=== PATIENT | female | born 1950 | race Caucasian/White ===

== ENCOUNTER 2018-11-09 12:03 | Emergency (ER) | payer OTHER ==
--- OUTSIDE RECORDS SUMMARY | 2018-11-09 12:42 | XMS REPORT ---
:1950 [facility] [address] [place] [address] Care Team Providers Name Role Phone Unavailable Unavailable Unavailable Payers Payer Name Policy Type Policy Number Effective Date Expiration Date Problems This patient has no known problems. Allergies, Adverse Reactions, Alerts Allergy Allergy Status Severity Reaction(s) Onset Inactive Treating Comments Name Type Date Date Clinician morphine DA Active 2018-09 00:00:0 0 adhesive DA Active 2018-09 00:00:0 0 latex DA Active SV 2018-09 00:00:0 0 morphine DA Active SV 2018-08 00:00:0 0 adhesive DA Active SV 2018-08 00:00:0 0 latex DA Active SV 2018-08 00:00:0 0 morphine DA Active SV 2018-07 00:00:0 0 adhesive DA Active SV 2018-07 00:00:0 0 MORPHINE DA Active SV 2018-07 00:00:0 0 latex DA Active SV 2018-03 00:00:0 0 Medications This patient has no known medications.
[2018-11-09] MEDS ORDERED: MEPERIDINE HCL 25 MG/0.5 ML ONE (13:12)
--- NOTE | 2018-11-09 13:24 | RAD REPORT ---
EXAM DESCRIPTION: CT - Head Brain Wo Cont - 11/09/2018 1:17 pm CLINICAL HISTORY: Headache, history of blood clotting disorder in breast cancer COMPARISON: CT head August 2017 TECHNIQUE: Axial 5 mm thick images of the head were obtained without IV contrast. All CT scans are performed using dose optimization technique as appropriate and may include automated exposure control or mA/KV adjustment according to patient size. FINDINGS: No intracranial hemorrhage, mass, edema or shift of mid-line structures. No acute infarcti on changes seen. No significant atrophy or chronic ischemic change. Ventricles are normal. Arterial c alcifications are present. Intracranial findings are similar to the comparison. Mastoid air cells and visualized portions of the paranasal sinuses are clear. No acute bony findings. IMPRESSION: Negative non-contrast CT head examination for acute finding. No significant interval ch rambo.
[2018-11-09] MEDS ORDERED: MORPHINE 4 MG/ML SYR ONE (14:30)
[2018-11-09] MEDS ORDERED: ONDANSETRON 4 MG/2 ML VIAL ONE (14:31)
[2018-11-09] MEDS ORDERED: NA CHLORIDE 0.9% 1,000 ML ONE (14:31)
[2018-11-09 14:52] LABS: Absolute Lymphocytes (CBC) 0.6 K/uL (0.7-4.9); Absolute Monocytes 0.7 K/uL (0.1-1.3); Absolute Neutrophil 5.2 K/uL (1.8-8.0); Basophils % 0.1 % (0-1.3); Eosinophils % 0.6 % (0-4.4); Hematocrit 42.7 % (36.0-45.0); Lymphocytes % 9.2 % (15.3-44.8); MPV 8.4 fL (7.6-11.3); Monocytes % 10.5 % (3.3-12.3); RBC Red Blood Cell Count 5.56 M/uL (3.86-4.86)
[2018-11-09] MEDS ORDERED: FENTANYL CITR 100 MCG/2 ML ONE (14:57)
[2018-11-09 15:00] LABS: Potassium 3.9 mmol/L (3.5-5.1)
--- NOTE | 2018-11-09 15:35 | ER ---
Nurse's Notes [facility] Name: Chrissy Tavares Age: 68 yrs Sex: Female : 1950 Arrival Date: 11/09/2018 Time: 12:08 Bed 13 Private MD: ELIESER ROCKWELL Diagnosis: Influenza due to identified novel influenza A virus Presentation: 11/09 12:12 Presenting complaint: Patient states: I think I have the flu, it started yesterday, I ch have a terrible productive cough, body aches, headache, nasal congestion. I feel horrible. Transition of care: patient was not received from another setting of care. Onset of symptoms was November 08, 2018 at 15:00. Risk Assessment: Do you want to hurt yourself or someone else? Patient reports no desire to harm self or others. Initial Sepsis Screen: Does the patient meet any 2 criteria? No. Patient's initial sepsis screen is negative. Does the patient have a suspected source of infection? No. Patient's initial sepsis screen is negative. Care prior to arrival: None. 12:12 Method Of Arrival: Ambulatory 12:12 Acuity: LORENZA 3 ch Triage Assessment: 12:15 General: Appears in no apparent distress. uncomfortable, Behavior is calm, cooperative, ch appropriate for age. Pain: Complains of pain in head. 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 - Social history:: Smoking status: Patient/guardian denies using tobacco, Patient/guardian denies using alcohol, street drugs. - Ebola Screening: : Patient negative for fever greater than or equal to 101.5 degrees Fahrenheit, and additional compatible Ebola Virus Disease symptoms Patient denies exposure to infectious person Patient denies travel to an Ebola-affected area in the 21 days before illness onset No symptoms or risks identified at this time. Screenin:22 Abuse screen: Denies threats or abuse. Nutritional screening: No deficits noted. rb1 Tuberculosis screening: No symptoms or risk factors identified. Fall Risk None identified. Assessment: 12:22 General: Appears uncomfortable, Behavior is calm, cooperative, Reports chills for fever rb1 for feeling ill for since yesterday. General:. Pain: Complains of pain in head Pain currently is 10 out of 10 on a pain scale. Neuro: Level of Consciousness is awake, alert, obeys commands, Oriented to person, place, time, situation. Cardiovascular: Capillary refill < 3 seconds is brisk in bilateral fingers. Respiratory: Reports cough that is productive, Airway is patent Respiratory effort is even, unlabored, Respiratory pattern is regular, symmetrical. Derm: Skin is pink, warm \T\ dry. 12:22 GI: Reports nausea. : No signs and/or symptoms were reported regarding the rb1 genitourinary system. EENT: Reports nasal congestion. Musculoskeletal: Range of motion: intact in all extremities. 13:20 Reassessment: Patient appears in no apparent distress at this time. No changes from rb1 previously documented assessment. 14:20 Reassessment: Patient appears in no apparent distress at this time. Patient and/or rb1 family updated on plan of care and expected duration. Pain level reassessed. Patient is alert, oriented x 3, equal unlabored respirations, skin warm/dry/pink. Family at bedside. 15:30 Reassessment: Patient appears in no apparent distress at this time. Patient and/or rb1 family updated on plan of care and expected duration. Pain level reassessed. Patient is alert, oriented x 3, equal unlabored respirations, skin warm/dry/pink. Patient states feeling better. Vital Signs: 12:15 BP 142 / 72; Pulse 81; Resp 16; Temp 99.6; Pulse Ox 96% on R/A; Weight 90.72 kg; Height ch 5 ft. 7 in. (170.18 cm); Pain 10/10; 13:10 BP 145 / 68; Pulse 79; Resp 20; Pulse Ox 97% ; hs1 14:10 BP 138 / 95; Pulse 75; Resp 16; Temp 100.4; Pulse Ox 98% ; hs1 15:45 BP 152 / 106; Pulse 75; Resp 24; Temp 101.6; Pulse Ox 98% ; hs1 12:15 Body Mass Index 31.32 (90.72 kg, 170.18 cm) ED Course: 12:08 Patient arrived in ED. sb2 12:08 ELIESER ROCKWELL is Private Physician. sb2 12:13 Triage completed. 12:15 Arm band placed on left wrist. Patient placed in an exam room, on a stretcher. 12:20 Sarah Farnsworth FNP-C [facility]. kb 12:20 Virgilio Cleary MD is Attending Physician. kb 12:22 Patient has correct armband on for positive identification. Bed in low position. Call rb1 light in reach. Side rails up X 1. Pulse ox on. NIBP on. 12:22 Flu Sent. 12:25 Cornelia Samuels, RN is Primary Nurse. rb1 13:[address] nj 13:17 CT completed. Patient tolerated procedure well. Patient moved back from CT. nj 13:17 CT Head Brain wo Cont In Process Unspecified. EDMS 15:57 No provider procedures requiring assistance completed. IV discontinued, intact, rb1 bleeding controlled, No redness/swelling at site. Pressure dressing applied. Administered Medications: 12:46 CANCELLED (Other Intervention Used): Ibuprofen 800 mg PO once kb 13:05 Drug: Demerol 25 mg Route: IM; Site: right gluteus; aj 13:35 Follow up: Response: No adverse reaction; Pain is unchanged, physician notified rb1 14:30 Drug: NS 0.9% 1000 ml Route: IV; Rate: 1000 ml; Site: left antecubital; rb1 14:30 Drug: Zofran 4 mg Route: IVP; Site: left antecubital; rb1 14:45 Follow up: Response: No adverse reaction; Nausea is decreased rb1 14:47 Not Given (pt now reports allergy to morphine after talking to family member): morphine kb 4 mg IVP once 14:50 Drug: fentaNYL (PF) 50 mcg Route: IVP; Site: left antecubital; rb1 15:10 Follow up: Response: No adverse reaction; Pain is decreased rb1 15:48 Drug: Tamiflu 75 mg Route: PO; rb1 15:55 Follow up: Response: Medication administered at discharge. rb1 15:48 Drug: Tylenol 1000 mg Route: PO; rb1 15:55 Follow up: Response: Medication administered at discharge. rb1 Outcome: 15:34 Discharge ordered by . kb 15:57 Discharged to home ambulatory, with family. rb1 15:57 Condition: stable 15:57 Discharge instructions given to patient, Instructed on discharge instructions, follow up and referral plans. medication usage, Demonstrated understanding of instructions, follow-up care, medications, Prescriptions given X 1. 15:58 Patient left the ED. rb1 Signatures: Dispatcher [employer] EDMS Sarah Farnsworth, MEDICAL CENTER MANAGER-C MEDICAL CENTER MANAGER-CkShawnee Valencia, RN Kelly Gurrola ch, RN RN aj Barber, Rebecca, RN RN rb1 Jeo Castillo Sheri sb2 Aaron Almeida hs1
--- NOTE | 2018-11-09 15:35 | EDPHYS ---
Physician Documentation [facility] Name: Chrissy Tavares Age: 68 yrs Sex: Female : 1950 Arrival Date: 11/09/2018 Time: 12:08 Bed 13 Private MD: ELIESER ROCKWELL ED Physician Virgilio Cleary HPI: 11/09 14:14 This 68 yrs old Female presents to ER via Ambulatory with complaints of Flu kb Symptoms. 14:14 The patient or guardian reports cough, that is intermittent, described as moderate, kb with no sputum, flu symptoms, arthralgias, low-grade fever, myalgias. Onset: The symptoms/episode began/occurred yesterday. Severity of symptoms: At their worst the symptoms were moderate, in the emergency department the symptoms are unchanged. Modifying factors: The symptoms are alleviated by nothing, the symptoms are aggravated by nothing. Associated signs and symptoms: Pertinent positives: earache, fever, Pertinent negatives: chest pain, diarrhea, nausea, rhinorrhea, sore throat, vomiting. The patient has not experienced similar symptoms in the past, but family has similar symptoms. The patient has not recently seen a physician. 14:15 Pt states "I have the flu or some other virus." Reports "everyone in the family has had kb it." c/o cough, headache, body aches, congestion. . 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 - Social history:: Smoking status: Patient/guardian denies using tobacco, Patient/guardian denies using alcohol, street drugs. - Ebola Screening: : Patient negative for fever greater than or equal to 101.5 degrees Fahrenheit, and additional compatible Ebola Virus Disease symptoms Patient denies exposure to infectious person Patient denies travel to an Ebola-affected area in the 21 days before illness onset No symptoms or risks identified at this time. ROS: 14:16 Neck: Negative for injury, pain, and swelling, Cardiovascular: Negative for chest pain, kb palpitations, and edema, Abdomen/GI: Negative for abdominal pain, nausea, vomiting, diarrhea, and constipation, Back: Negative for injury and pain, : Negative for injury, bleeding, discharge, and swelling, MS/Extremity: Negative for injury and deformity, Skin: Negative for injury, rash, and discoloration. 14:16 Constitutional: Positive for body aches, fatigue, malaise, Negative for fever, poor PO intake, weight loss. 14:16 ENT: Positive for sinus congestion. 14:16 Respiratory: Positive for cough, Negative for dyspnea on exertion, hemoptysis, orthopnea, pleurisy, shortness of breath, sputum production, wheezing. 14:16 Neuro: Positive for headache, Negative for altered mental status, dizziness, gait disturbance, hearing loss, loss of consciousness, numbness, seizure activity, speech changes, syncope, near syncope, tingling, tinnitus, tremor, visual changes, weakness. Exam: 14:17 Constitutional: This is a well developed, well nourished patient who is awake, alert, kb and in no acute distress. Head/Face: Normocephalic, atraumatic. ENT: Nares patent. No nasal discharge, no septal abnormalities noted. Tympanic membranes are normal and external auditory canals are clear. Oropharynx with no redness, swelling, or masses, exudates, or evidence of obstruction, uvula midline. Mucous membranes moist. Neck: Trachea midline, no thyromegaly or masses palpated, and no cervical lymphadenopathy. Supple, full range of motion without nuchal rigidity, or vertebral point tenderness. No Meningismus. Chest/axilla: Normal chest wall appearance and motion. Nontender with no deformity. No lesions are appreciated. Cardiovascular: Regular rate and rhythm with a normal S1 and S2. No gallops, murmurs, or rubs. Normal PMI, no JVD. No pulse deficits. Respiratory: Lungs have equal breath sounds bilaterally, clear to auscultation and percussion. No rales, rhonchi or wheezes noted. No increased work of breathing, no retractions or nasal flaring. Abdomen/GI: Soft, non-tender, with normal bowel sounds. No distension or tympany. No guarding or rebound. No evidence of tenderness throughout. Skin: Warm, dry with normal turgor. Normal color with no rashes, no lesions, and no evidence of cellulitis. MS/ Extremity: Pulses equal, no cyanosis. Neurovascular intact. Full, normal range of motion. Neuro: Awake and alert, GCS 15, oriented to person, place, time, and situation. Cranial nerves II-XII grossly intact. Motor strength 5/5 in all extremities. Sensory grossly intact. Cerebellar exam normal. Normal gait. Vital Signs: 12:15 BP 142 / 72; Pulse 81; Resp 16; Temp 99.6; Pulse Ox 96% on R/A; Weight 90.72 kg; Height ch 5 ft. 7 in. (170.18 cm); Pain 10/10; 13:10 BP 145 / 68; Pulse 79; Resp 20; Pulse Ox 97% ; hs1 14:10 BP 138 / 95; Pulse 75; Resp 16; Temp 100.4; Pulse Ox 98% ; hs1 15:45 BP 152 / 106; Pulse 75; Resp 24; Temp 101.6; Pulse Ox 98% ; hs1 12:15 Body Mass Index 31.32 (90.72 kg, 170.18 cm) MDM: 12:20 Patient medically screened. kb 14:13 Data reviewed: vital signs, nurses notes. Data interpreted: Pulse oximetry: on room air kb is 97 %. Interpretation: normal. 15:33 Counseling: I had a detailed discussion with the patient and/or guardian regarding: the kb historical points, exam findings, and any diagnostic results supporting the discharge/admit diagnosis, lab results, radiology results, the need for outpatient follow up, a family practitioner, to return to the emergency department if symptoms worsen or persist or if there are any questions or concerns that arise at home. 11/09 12:18 Order name: Flu; Complete Time: 14:47 hb 11/09 14:14 Order name: CBC with Diff; Complete Time: 14:54 kb 11/09 12:49 Order name: CT Head Brain wo Cont; Complete Time: 13:26 kb 11/09 14:14 Order name: Basic Metabolic Panel; Complete Time: 15:08 kb 11/09 14:14 Order name: [place] Screen Profile; Complete Time: 15:39 kb 11/09 14:14 Order name: IV Start; Complete Time: 14:59 kb Administered Medications: 12:46 CANCELLED (Other Intervention Used): Ibuprofen 800 mg PO once kb 13:05 Drug: Demerol 25 mg Route: IM; Site: right gluteus; aj 13:35 Follow up: Response: No adverse reaction; Pain is unchanged, physician notified rb1 14:30 Drug: NS 0.9% 1000 ml Route: IV; Rate: 1000 ml; Site: left antecubital; rb1 14:30 Drug: Zofran 4 mg Route: IVP; Site: left antecubital; rb1 14:45 Follow up: Response: No adverse reaction; Nausea is decreased rb1 14:47 Not Given (pt now reports allergy to morphine after talking to family member): morphine kb 4 mg IVP once 14:50 Drug: fentaNYL (PF) 50 mcg Route: IVP; Site: left antecubital; rb1 15:10 Follow up: Response: No adverse reaction; Pain is decreased rb1 15:48 Drug: Tamiflu 75 mg Route: PO; rb1 15:55 Follow up: Response: Medication administered at discharge. rb1 15:48 Drug: Tylenol 1000 mg Route: PO; rb1 15:55 Follow up: Response: Medication administered at discharge. rb1 Disposition: 11/10 07:22 Co-signature as Attending Physician, Virgilio Cleary MD I agree with the assessment and kdr plan of care. Disposition: 11/09/18 15:34 Discharged to Home. Impression: Influenza due to identified novel influenza A virus. - Condition is Stable. - Discharge Instructions: Influenza, Adult, [id number]. - Prescriptions for Tamiflu 75 mg Oral Capsule - take 1 capsule by ORAL route every 12 hours for 5 days; 10 capsule. - Medication Reconciliation Form, Thank You Letter, Antibiotic Education, Prescription Opioid Use form. - Follow up: Emergency Department; When: As needed; Reason: Worsening of condition. Follow up: Private Physician; When: 2 - 3 days; Reason: Recheck today's complaints, Continuance of care, Re-evaluation by your physician. Signatures: Dispatcher [employer] Sarah Leonard, ADVENTURE THERAPIST-C ADVENTURE THERAPIST-Ckb Shawnee Hilton, RN RN Kelly Lopez, RN Virgilio Owens MD MD kdr Barber, Rebecca, RN RN rb1 Corrections: (The following items were deleted from the chart) 11/09 12:46 12:45 Ibuprofen 800 mg PO once ordered. kb kb 15:58 15:34 11/09/2018 15:34 Discharged to Home. Impression: Influenza due to identified rb1 novel influenza A virus. Condition is Stable. Forms are Medication Reconciliation Form, Thank You Letter, Antibiotic Education, Prescription Opioid Use. Follow up: Emergency Department; When: As needed; Reason: Worsening of condition. Follow up: Private Physician; When: 2 - 3 days; Reason: Recheck today's complaints, Continuance of care, Re-evaluation by your physician. kb
[2018-11-09] MEDS ORDERED: OSELTAMIVIR 75 MG CAP ONE (15:53)
[2018-11-09] MEDS ORDERED: ACETAMINOPHEN 500 MG TAB ONE (15:53)
[2018-11-09 16:12] VITALS: O2SAT 98
[2018-11-09 16:14] VITALS: BP 152/106; TEMP 101.6
== END 2018-11-09 15:58 | disposition home or self-care (01) ==
LOC: ER 12:03
DX: J10.1 Influenza due to other identified influenza virus with other respiratory manifestations (principal); E11.9 Type 2 diabetes mellitus without complications; F32.9 Major depressive disorder, single episode, unspecified; Z79.01 Long term (current) use of anticoagulants; Z85.3 Personal history of malignant neoplasm of breast; Z88.5 Allergy status to narcotic agent; Z86.718 Personal history of other venous thrombosis and embolism; Z91.048 Other nonmedicinal substance allergy status
CPT/HCPCS: 36415; 70450; 80048; 85025; 86308; 87804; 96372; 96374; 96375; 99284; J2175; J2405; J3010; J7030

== ENCOUNTER 2021-03-06 11:05 | Emergency (ER) | payer OTHER ==
--- OUTSIDE RECORDS SUMMARY | 2021-03-06 11:11 | XMS REPORT | Continuity of Care Document ---
:1950 Author Organization [facility] t Address [address] [place] [place] [address] Care Team Providers Name Role Phone Moiz Primary Care Physician Unavailable Humble WHITE, Marita Attending Clinician Marita Mehta MD Attending Clinician Alexia Palacio Attending Clinician Eva Oropeza MD Attending Clinician Noa WHITE RJv Attending Clinician Alden AZEVEDO Attending Clinician Unavailable Karan Gomez MD Attending Clinician Venus Mallory NP Attending Clinician NOA Admitting Clinician Unavailable Payers Payer Name Policy Type Policy Effective Date Expiration Date Sour ce Number MEDICAREMEDICARE PART [id number] 2017 Ambrose Kirkland AND 00:00:00 [place] [id number] [place]NA [id number] 2000 [place] HMO,POS,EPO, 00:00:00 [facility] KYLAH/[id number] Problems Condition Condition Condition Status Onset Resolution Last Treating Co mments Source Name Details Category Date Date Treatment Clinician Date Overweight Overweight Problem Active [facility] 4-12 Family 00:00: Practic 00 e Insomnia Insomnia Problem Active Dudley ge 8-19 Family 00:00: Practic 00 e Essential Essential Problem Active Aquiles wolff hypertensi Hypertensi 8-19 Fa jah on on 00:00: Practic 00 e Hypertensi Hypertensi Problem Active [facility] ve ve 8-19 Family disorder Disorder 00:00: Practi c 00 e Finding Finding Problem Active [facility] related to Related to - [facility] sleep Sleep 00:00: Practic 00 e 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 2-19 Fa jah 00:00: Practic 00 e Cardiac Cardiac Problem Active [facility] finding Finding 2-19 Family 00:00: Practic 00 e Anxiety Anxiety Problem Active [facility] 8-19 Family 00:00: Practic [address] SNOMED CT Problem Active Aquiles wolff Concept Concept 8-19 Family 00:00: Practic 00 e 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 2-19 Family 00:00: Practic 00 e Candidiasi Candidiasi Problem Active 2016-11 [facility] illage s of s of 1-20 Family vagina Vagina 00:00: Practic e Hypothyroi Hypothyroi Problem Active [facility] dism dism 9-25 Family 00:00: Practic 00 e Type 2 Type 2 Problem Active [facility] diabetes Diabetes 9-25 Family mellitus Mellitus 00:00: Practi c without without 00 e complicati Complicati on on Hyperlipid Hyperlipid Problem Active [facility] emia emia 9-25 Family 00:00: Practic 00 e Blood Blood Problem Active [facility] coagulatio Coagulatio - [facility] n disorder n Disorder 00:00: Pr actic 00 e Cardiac Cardiac Problem Active [facility] arrhythmia Arrhythmia 9- Fa jah 00:00: Practic 00 e Gastroesop Gastroesop Problem Active [facility] hageal hageal 08-01 Family reflux Reflux 00:00: Practic disease Disease 00 e without without esophagiti Esophagiti s s Osteoarthr Osteoarthr Problem Active [facility] itis itis 08-01 Family 00:00: Practic 00 e Multiple Multiple Problem Active Dudley ge complicati Complicati 08-01 Kristi tyson ons due to ons Due to 00:00: Pr actic type 2 Type 2 00 e diabetes Diabetes mellitus Mellitus 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 08-01 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 Breast 00:00: Practic 00 e Dyslipidem Dyslipidem Problem Active [facility] ia due to ia Due to 08-01 Fami ly type 2 Type 2 00:00: Practic diabetes Diabetes 00 e mellitus Mellitus General General Problem Active [place] finding of Finding of 08-01 Kristi tyson observatio Observatio 00:00: Pr actic n of n of 00 e patient Patient Finding of Finding of Problem Active [facility] esophagus Esophagus 08-01 Fami ly 00:00: Practic 00 e Inflammato Inflammato Problem Active [facility] ry ry 08-01 Family disorder Disorder 00:00: Practi c of of 00 e extremity Extremity Infectious Infectious Problem Active [facility] mononucleo Mononucleo Kristi tyson sis sis Practic e Disorder Disorder Problem Active Dudley ge of of Family intestine Intestine Prac tic e Arthropath Arthropath Problem Active [facility] ill[facility] y y Family Practic e Difficulty Difficulty Problem Active [facility] producing Producing Fami ly voiced Voiced Practic sounds Sounds e Clinical Clinical Problem Active Dudley ge finding Finding Family Practic e Finding of Finding of Problem Active [facility] knee Knee Family region Region Practic e Difficulty Difficulty Problem Active [facility] speaking Speaking Family Practic e Allergies, Adverse Reactions, Alerts Allergy Allergy Status Severity Reaction(s) Onset Inactive Treating Comm ents Source Name Type Date Date Clinician Shrimp Propensi Active Rash 2019-0 [facility] ty to 6-02 Methodi adverse 00:00: st reaction 00 s to drug Latex Propensi Active Rash Arguello ty to 3-18 [facility] adverse 00:00: st reaction 00 s to drug Morphine Propensi Active Swelling 2019-0 [place] ty to 3-18 [facility] adverse 00:00: st reaction 00 s to drug morphine DA Active SV 2018-1 [facility] [place] adhesive DA Active SV 2018-1 [facility] 1[facility] [place] latex DA Active SV 2018-1 [facility] 1[facility] [place] morphine DA Active SV 2018-1 [facility] 0-18 [facility] [place] adhesive DA Active SV 2018-1 [facility] 0-18 [facility] [place] latex DA Active SV 2018-1 [facility] 0-18 [facility] [place] morphine DA Active SV 2018-0 [facility] 9-28 [facility] 00:[facility] [place] adhesive DA Active SV 2018-0 [facility] 9-27 [facility] 00:[facility] [place] MORPHINE DA Active SV 2018-0 [facility] 9-27 [facility] 00:[facility] [place] latex DA Active SV 2018-0 [facility] 5-24 Clear 00:00: [place] 00 [facility] Hydrocod Allergy Active Anaphylaxis [facility] one to Family substanc Practic e e Family History Family Member Diagnosis Comments Start Date Stop Date Source Natural brother Diabetes [facility] ethodist Natural daughter Blood Clots [place] Natural father Heart attack [place] [facility] Natural father Heart disease [place] [facility] Natural mother Diabetes [place] [facility] thodist Natural mother Heart disease [place] [facility] Natural mother Stroke [facility] thodist Natural sister Cancer [facility] Natural sister Diabetes [place] [facility] Social History Social Habit Start Date Stop Date Quantity Comments Source Tobacco use and 2020-04-24 2020-04-24 Never used Jos Lopes ethodist exposure 00:00:00 00:00:00 Alcohol intake 2020-04-24 2020-04-24 Lifetime [facility] thodist 00:00:00 00:00:00 non-drinker (finding) Sex [birth year] Jos Lopes ethodist 00:00:00 00:00:00 Smoking Status Start Date Stop Date Source Never smoker [place] Methodis t Medications Ordered Filled Start Stop Current Ordering Indication Dosage Frequency Signature Comments Components Source Medication Medication Date Date Medication? Clinician (SIG) Name Name celecoxib 2020-0 2021- No 200mg Q.5D TAKE 1 [place] (CeleBREX) 3-22 04-21 CAPSULE Metho di 200 MG 00:00: 23:59 ([address] capsule 00 :00 TOTAL) BY MOUTH 2 (TWO) TIMES A DAY FOR 30 DAYS. celecoxib 2019-11- No 200mg Q.5D TAKE 1 [place] (CeleBREX) 2-17 03-22 CAPSULE Metho di 200 MG 00:00: 00:00 ([address] capsule 00 :00 TOTAL) BY MOUTH 2 (TWO) TIMES A DAY FOR 30 DAYS. celecoxib 2019- No 200mg Q.5D TAKE 1 [place] (CeleBREX) 9-14 12-17 CAPSULE Metho di 200 MG 00:00: 00:00 ([address] capsule 00 :00 TOTAL) BY MOUTH 2 (TWO) TIMES A DAY FOR 30 DAYS. HYDROcodone 2019- No acute pain 1{tbl} Q4H Take 1 [facility] -acetaminop 7-17 07-24 tablet by Agency Spotter (treadalong) 00:00: 23:[address] 10-325 mg 00 :00 every 4 per tablet (four) hours as needed for severe pain for up to 7 days .acute pain. Max Daily Amount: 6 tablets HYDROcodone 2019- No acute pain 1{tbl} Q4H Take 1 Arguello -acetaminop 7-01 07-08 tablet by [facility]ter (treadalong) 00:00: 23:[address] 10-325 mg 00 :00 every 4 per tablet (four) hours as needed for severe pain for up to 7 days .acute pain. Max Daily Amount: 6 tablets HYDROcodone 2019- No acute pain 1{tbl} Q4H Take 1 [facility] -acetaminop 6-19 06-26 tablet by Agency [facility]ter (treadalong) 00:00: 23:[address] 10-325 mg 00 :00 every 4 per tablet (four) hours as needed for severe pain for up to 7 days .acute pain. Max Daily Amount: 6 tablets HYDROcodone 2019- No acute pain 1{tbl} Q4H Take 1 [place] -acetaminop 6-18 06-19 tablet by Agency Spotter (treadalong) 00:00: 00:[address] 10-325 mg 00 :00 every 4 per tablet (four) hours as needed for severe pain for up to 7 days .acute pain. Max Daily Amount: 6 tablets HYDROcodone 2020-0 2020- No acute pain 1{tbl} Q4H Take 1 [facility] -acetaminop 6-18 06-18 tablet by Me marco partida (treadalong) 00:00: 00:[address] 10-325 mg 00 :00 every 4 per tablet (four) hours as needed for severe pain for up to 7 days .acute pain. Max Daily Amount: 6 tablets celecoxib 2020-0 2020- No 200mg Q.5D TAKE 1 [place] (CeleBREX) 6-17 09-14 CAPSULE Metho di 200 MG 00:00: 00:00 ([address] capsule 00 :00 TOTAL) BY MOUTH 2 (TWO) TIMES A DAY FOR 30 DAYS. HYDROcodone 2020-0 2020- No acute pain 1{tbl} Q4H Take 1 [facility]gu[place] -acetaminop 6-10 06-18 tablet by Me marco partida (treadalong) 00:00: 11:[address] 10-325 mg 00 :27 every 4 per tablet (four) hours as needed for severe pain for up to 7 days .acute pain. Max Daily Amount: 6 tablets Hymera 2020-0 2020- No acute pain 1{tbl} Q4H Take 1 [place] 10-325 mg 6-04 06-11 tablet by Meth thanh per tablet 00:00: 23:[address] 00 :00 every 4 (four) hours as needed for moderate pain for up to 7 days .acute pain. Max Daily Amount: 6 tablets metformin 2020-0 Yes Q.5D Take by Jimmy on HCl 6-02 mouth 2 [facility] (METFORMIN 14:40: (two) st ORAL) 00 times a day. rivaroxaban 2020-0 Yes Take by Shar ronquillo (XARELTO 6-02 mouth. [facility] ORAL) 14:40: st 00 venlafaxine 2020-0 Yes 150mg QD Take 150 [place] XR 6-02 mg by [facility] (EFFEXOR-XR 14:40: mouth st ) 150 MG 24 00 daily. hr capsule liraglutide 2020-0 Yes QD Inject [place] (VICTOZA) 6-02 under the Metho di 0.6 mg/0.1 14:40: skin daily s t mL (18 mg/3 00 with mL) pen breakfast. injector fenofibrate 2020-0 Yes 48mg QD Take 48 mg Argu[facility] (TRICOR) 48 6-02 by mouth Meth thanh MG tablet 14:40: daily. st 00 gabapentin 2019-0 Yes 600mg QD Take 600 [place] (NEURONTIN) 6-02 mg by Methodi 300 mg 14:40: mouth st capsule 00 nightly. glipiZIDE 2020- No 10mg QD Take 10 mg [place] (GLUCOTROL) 602 06-02 by mouth Met hodi 10 MG 24 hr 08:58: 00:[address] tablet 56 :00 omeprazole 2020- No 40mg QD Take 40 mg [place]gu[place] (PriLOSEC) 5-29 05-29 by mouth Meth thanh 40 MG 10:06: 00:[address] capsule 11 :00 thyroid, Yes 90mg Take 90 mg Shar [place]on pork, 90 mg 5-11 by mouth. Met hodi tablet 00:00: st 00 naloxegoL Yes 25mg QD Take 1 [place] (MOVANTIK) 3-18 tablet (25 Met hodi 25 mg 00:00: mg total) st tablet 00 by mouth tablet daily before breakfast. celecoxib 2019- No 200mg Q.5D Take 1 [place] (CeleBREX) 3-18 06-17 capsule Metho di 200 MG 00:00: 00:00 ([address] capsule 00 :00 total) by mouth 2 (two) times a day for 30 days. ferrous Yes TAKE 1 [place] fumarate 2-14 TABLET BY Method i (Ferrocite) 00:00: MOUTH st 324 mg (106 00 TWICE A mg iron) DAY tablet dexlansopra 2018-11 2020- No 60mg Take 60 mg [place] zole 2-04 06-02 by mouth. [facility] (DEXILANT) 00:00: 00:00 st 60 mg 00 :00 capsule traMADoL Yes 50mg Take 50 mg Shar ston (ULTRAM) 50 3-28 by mouth. Met hodi mg tablet 00:00: st 00 atorvastati Yes atorvastat Arguello n (LIPITOR) 6-06 in 20 mg Meth thanh 20 mg 00:00: tablet st tablet 00 traZODone 2016-11 2020- No 50mg Take [place] (DESYREL) 0-27 06-02 50-150 mg Meth thanh 50 MG 00:00: 00:[address] tablet 00 :00 metoprolol 2020- No metoprolol [place] succinate 03-14 succinate Meth thanh XL 00:00: 00:[address] (TOPROL-XL) 00 :00 tablet,ext 25 mg 24 hr ended tablet release 24 hr alprazolam alprazolam No alprazolam [place] 1 mg tablet 1 mg tablet 1 mg F amily TAKE ONE TAKE ONE tablet Pract ic TABLET BY TABLET BY TAKE ONE e MOUTH AT MOUTH AT TABLET BY BEDTIME BEDTIME MOUTH AT NEEDED NEEDED BEDTIME NEEDED amlodipine amlodipine No amlodipine [facility] 5 mg tablet 5 mg tablet 5 mg F amily TAKE 1 TAKE 1 tablet Practic TABLET BY TABLET BY TAKE 1 e MOUTH EVERY MOUTH EVERY TABLET BY DAY DAY MOUTH EVERY DAY [facility]oxicillin am[facility] mg n 500 mg Family capsule capsule capsule Practi c TAKE 1 TAKE 1 TAKE 1 e CAPSULE BY CAPSULE BY CAPSULE BY MOUTH EVERY MOUTH EVERY MOUTH 8 HOURS 8 HOURS EVERY 8 UNTIL ALL UNTIL ALL HOURS TAKEN TAKEN UNTIL ALL TAKEN amoxicillin amoxicillin No amoxicilli [facility] 500 500 n 500 Family mg-potassiu mg-potassiu mg-potassi Practic m m um e clavulanate clavulanate clavulanat 125 mg 125 mg e 125 mg tablet TAKE tablet TAKE tablet 1 TABLET BY 1 TABLET BY TAKE 1 MOUTH 2 MOUTH 2 TABLET BY (TWO) TIMES (TWO) TIMES MOUTH 2 DAILY WITH DAILY WITH (TWO) MEALS FOR 7 MEALS FOR 7 TIMES DAYS. DAYS. DAILY WITH MEALS FOR 7 DAYS. [place] No [place] Thyroid 90 Thyroid 90 Thyroid 90 Family mg tablet mg tablet mg tablet Practic TAKE 1 TAKE 1 TAKE 1 e TABLET BY TABLET BY TABLET BY MOUTH EVERY MOUTH EVERY MOUTH DAY DAY EVERY DAY atorvastati atorvastati No atorvastat [facility] n 20 mg n 20 mg in 20 mg Famil y tablet Take tablet Take tablet Practic 1 tablet 1 tablet Take 1 e every day every day tablet by oral by oral every day route for route for by oral 90 days. 90 days. route for 90 days. azithromyci azithromyci [facility] mg n 250 mg in 250 mg Fa jah tablet TAKE tablet TAKE tablet Practic 2 TABLETS 2 TABLETS TAKE 2 e BY MOUTH BY MOUTH TABLETS BY TODAY, THEN TODAY, THEN MOUTH TAKE 1 TAKE 1 TODAY, TABLET TABLET THEN TAKE DAILY FOR 4 DAILY FOR 4 1 TABLET DAYS DAYS DAILY FOR 4 DAYS azithromyci azithromyci No azithromyc [facility] n 500 mg n 500 mg in 500 mg Fa jah tablet TAKE tablet TAKE tablet Practic 1 TABLET BY 1 TABLET BY TAKE 1 e MOUTH MOUTH TABLET BY TODAY, TODAY, MOUTH FOLLOWED BY FOLLOWED BY TODAY, 1 TABLET 1 TABLET FOLLOWED EVERY DAY EVERY DAY BY 1 FOR THE FOR THE TABLET NEXT 3 DAYS NEXT 3 DAYS EVERY DAY FOR THE NEXT 3 DAYS bisoprolol bisoprolol No bisoprolol [facility] 5 5 5 Family mg-hydrochl mg-hydrochl mg-hydroch Practic orothiazide orothiazide lorothiazi e 6.25 mg 6.25 mg de 6.25 mg tablet TAKE tablet TAKE tablet 1 TABLET BY 1 TABLET BY TAKE 1 MOUTH EVERY MOUTH EVERY TABLET BY DAY DAY MOUTH EVERY DAY celecoxib celecoxib No celecoxib [facility] 200 mg 200 mg 200 mg Family capsule capsule capsule Practi c TAKE 1 TAKE 1 TAKE 1 e CAPSULE CAPSULE CAPSULE (200 MG (200 MG (200 MG TOTAL) BY TOTAL) BY TOTAL) BY MOUTH 2 MOUTH 2 MOUTH 2 (TWO) TIMES (TWO) TIMES (TWO) A DAY FOR A DAY FOR TIMES A 30 DAYS. 30 DAYS. DAY FOR 30 DAYS. Comfort EZ Comfort EZ No Comfort EZ [facility] Pen [place] Pen [place] Pen F amily 31 gauge x 31 gauge x [place] 31 Practic 3/16" 3/16" gauge x e 3/16" dexamethaso dexamethaso [facility] ne 2 mg ne 2 mg one 2 mg Famil y tablet TAKE tablet TAKE tablet Practic 1 TABLET BY 1 TABLET BY TAKE 1 e MOUTH EVERY MOUTH EVERY TABLET BY 12 HOURS 12 HOURS MOUTH FOR 5 DAYS FOR 5 DAYS EVERY 12 HOURS FOR 5 DAYS dexamethaso dexamethaso [facility] ne 4 mg ne 4 mg one 4 mg Famil y tablet ONE tablet ONE tablet ONE Practic PILL AT 11 PILL AT 11 PILL AT 11 e PM NIGHT PM NIGHT PM NIGHT BEFORE THE BEFORE THE BEFORE THE LAB TEST LAB TEST LAB TEST escitalopra escitalopra No escitalopr [facility] m 10 mg m 10 mg am 10 mg Famil y tablet TAKE tablet TAKE tablet Practic 1 TABLET BY 1 TABLET BY TAKE 1 e MOUTH MOUTH TABLET BY EVERYDAY AT EVERYDAY AT MOUTH BEDTIME BEDTIME EVERYDAY AT BEDTIME famotidine famotidine No famotidine [facility] 20 mg 20 mg 20 mg Family tablet TAKE tablet TAKE tablet Practic 1 TABLET BY 1 TABLET BY TAKE 1 e MOUTH EVERY MOUTH EVERY TABLET BY 12 HOURS 12 HOURS MOUTH FOR 10 DAYS FOR 10 DAYS EVERY 12 HOURS FOR 10 DAYS fenofibrate fenofibrate No 1 [facility] micronized micronized e Fam linden 48 mg 48 mg micronized Practic tablet Take tablet Take 48 mg e 1 tablet 1 tablet tablet every day every day Take 1 by oral by oral tablet route. route. every day by oral route. fenofibrate fenofibrate [facility] nanocrystal nanocrystal e F amily lized 48 mg lized 48 mg nanocrysta Practic tablet TAKE tablet TAKE llized 48 e 1 TABLET BY 1 TABLET BY mg tablet MOUTH EVERY MOUTH EVERY TAKE 1 DAY DAY TABLET BY MOUTH EVERY DAY Ferrocite Ferrocite No Ferrocite [facility] 324 mg (106 324 mg (106 324 mg Family mg iron) mg iron) (106 mg Prac tic tablet TAKE tablet TAKE iron) e 1 TABLET BY 1 TABLET BY tablet MOUTH TWICE MOUTH TWICE TAKE 1 A DAY A DAY TABLET BY MOUTH TWICE A DAY gabapentin gabapentin No gabapentin [facility] 300 mg 300 mg 300 mg Family capsule capsule capsule Practi c TAKE 1 TAKE 1 TAKE 1 e CAPSULE BY CAPSULE BY CAPSULE BY MOUTH TWICE MOUTH TWICE MOUTH A DAY A DAY TWICE A DAY hydrocodone hydrocodone No hydrocodon [facility] 10 10 e 10 Family mg-acetamin mg-acetamin mg-acetami Practic ophen 325 ophen 325 nophen 325 e mg tablet mg tablet mg tablet TK 1 T PO TK 1 T PO TK 1 T PO Q 4 H PRN Q 4 H PRN Q 4 H PRN SEVERE P SEVERE P SEVERE P FOR UP TO 7 FOR UP TO 7 FOR UP TO DAYS DAYS 7 DAYS hydrocodone [facility]codone [facility] e 5 Family mg-acetamin mg-acetamin mg-acetami Practic ophen 300 ophen 300 nophen 300 e mg tablet mg tablet mg tablet TAKE 1 TAKE 1 TAKE 1 TABLET BY TABLET BY TABLET BY MOUTH EVERY MOUTH EVERY MOUTH SIX HOURS SIX HOURS EVERY SIX HOURS Jardiance Jardiance No Jardiance [place] 25 mg 25 mg 25 mg Family tablet TAKE tablet TAKE tablet Practic 1 TABLET BY 1 TABLET BY TAKE 1 e MOUTH EVERY MOUTH EVERY TABLET BY DAY DAY MOUTH EVERY DAY Klor-Con 10 Klor-Con 10 No 1 Q1D Klor-Con [facility] mEq mEq 10 mEq Family tablet,exte tablet,exte tablet,ext Practic nded nded ended e release 1 release 1 release 1 tablet tablet tablet every day every day every day by oral by oral by oral route. route. route. levothyroxi levothyroxi No levothyrox [facility] ne 100 mcg ne 100 mcg ine 100 Family tablet TAKE tablet TAKE mcg tablet Practic 1 TABLET BY 1 TABLET BY TAKE 1 e MOUTH EVERY MOUTH EVERY TABLET BY MORNING. MORNING. MOUTH REPLACES REPLACES EVERY ARMOUR ARMOUR MORNING. THYROID. TH[facility]ROID. [facility]. levothyroxi levothyroxi No levothyrox [facility] ne 75 mcg ne 75 mcg ine 75 mcg Family tablet TAKE tablet TAKE tablet Practic 1 TABLET BY 1 TABLET BY TAKE 1 e MOUTH EVERY MOUTH EVERY TABLET BY DAY IN THE DAY IN THE MOUTH MORNING MORNING EVERY DAY IN THE MORNING losartan losartan No losartan [facility] mariella 100 mg 100 mg 100 mg Family tablet 1 tablet 1 tablet 1 Pra ctic TABLET TABLET TABLET e ORALLY ONCE ORALLY ONCE ORALLY A DAY 30 A DAY 30 ONCE A DAY 30 losartan 50 losartan 50 No losartan [place] mg tablet mg tablet 50 mg Fami ly TAKE 1 TAKE 1 tablet Practic TABLET BY TABLET BY TAKE 1 e MOUTH EVERY MOUTH EVERY TABLET BY DAY DAY MOUTH EVERY DAY metformin metformin No metformin [facility] 1,000 mg 1,000 mg 1,000 mg Fam linden tablet TAKE tablet TAKE tablet Practic 1 TABLET BY 1 TABLET BY TAKE 1 e MOUTH TWICE MOUTH TWICE TABLET BY A DAY A DAY MOUTH TWICE A DAY omeprazole omeprazole No omeprazole [facility] 20 mg 20 mg 20 mg Family capsule,del capsule,del capsule,de Practic ayed ayed layed e release release release TAKE 1 TAKE 1 TAKE 1 CAPSULE BY CAPSULE BY CAPSULE BY MOUTH EVERY MOUTH EVERY MOUTH DAY DAY EVERY DAY OneTouch OneTouch No OneTouch [facility] mariella Delica Delica Delica Family Lancets Lancets Lancets Practi c e OneTouch OneTouch No 2strip( Q1D OneTouch [facility] Verio test Verio test s) Verio test Family strips Take strips Take strips Practic 2 strips 2 strips Take 2 e every day every day strips by miscell. by miscell. every day route for route for by 90 days. 90 days. miscell. route for 90 days. Ozempic Ozempic No Ozempic [place] 0.25 mg or 0.25 mg or 0.25 mg or Family 0.5 mg (2 0.5 mg (2 0.5 mg (2 Practic mg/1.5 mL) mg/1.5 mL) mg/1.5 mL) e subcutaneou subcutaneou subcutaneo s pen s pen us pen injector injector injector INJECT 0.5 INJECT 0.5 INJECT 0.5 MG EVERY MG EVERY MG EVERY WEEK BY WEEK BY WEEK BY SUBCUTANEOU SUBCUTANEOU SUBCUTANEO S ROUTE FOR S ROUTE FOR US ROUTE 30 DAYS. 30 DAYS. FOR 30 DAYS. temazepam temazepam No temazepam [place] 15 mg 15 mg 15 mg Family capsule capsule capsule Practi c TAKE 1 TAKE 1 TAKE 1 e CAPSULE BY CAPSULE BY CAPSULE BY MOUTH AT MOUTH AT MOUTH AT BEDTIME BEDTIME BEDTIME NEEDED NEEDED NEEDED tizanidine tizanidine No tizanidine [facility] 2 mg tablet 2 mg tablet 2 mg F amily TAKE 1 TAKE 1 tablet Practic TABLET BY TABLET BY TAKE 1 e MOUTH EVERY MOUTH EVERY TABLET BY 8 (EIGHT) 8 (EIGHT) MOUTH HOURS HOURS EVERY 8 NEEDED FOR NEEDED FOR (EIGHT) MUSCLE MUSCLE HOURS SPASMS SPASMS NEEDED FOR MUSCLE SPASMS venlafaxine venlafaxine No venlafaxin [facility] 75 mg 75 mg e 75 mg Family tablet TAKE tablet TAKE tablet Practic 1 TABLET BY 1 TABLET BY TAKE 1 e MOUTH EVERY MOUTH EVERY TABLET BY DAY DAY MOUTH EVERY DAY Victoza 0.6 Victoza 0.6 No Victoza Paula mg/0.1 mL mg/0.1 mL 0.6 mg/0.1 Family (18 mg/3 (18 mg/3 mL (18 Pract ic mL) mL) mg/3 mL) e subcutaneou subcutaneou subcutaneo s pen s pen us pen injector injector injector Victoza Victoza No Victoza [place] e 3-Ron 0.6 3-Ron 0.6 3-Ron 0.6 Family mg/0.1 mL mg/0.1 mL mg/0.1 mL Practic (18 mg/3 (18 mg/3 (18 mg/3 e mL) mL) mL) subcutaneou subcutaneou subcutaneo s pen s pen us pen injector injector injector INJECT 1.8 INJECT 1.8 INJECT 1.8 MG ONCE IN MG ONCE IN MG ONCE IN AM AM AM SUBCUTANEOU SUBCUTANEOU SUBCUTANEO S 90 DAYS S 90 DAYS US 90 DAYS Xarelto 10 Xarelto 10 No 1 Q1D Xarelto 10 Village mg tablet mg tablet mg tablet Family Take 1 Take 1 Take 1 Practic tablet tablet tablet e every day every day every day by oral by oral by oral route. route. route. Xarelto 20 Xarelto 20 No Xarelto 20 [place] mg tablet mg tablet mg tablet Family PLEASE SEE PLEASE SEE PLEASE SEE Practic ATTACHED ATTACHED ATTACHED e FOR FOR FOR DETAILED DETAILED DETAILED DIRECTIONS DIRECTIONS DIRECTIONS zolpidem 5 zolpidem 5 No zolpidem 5 Village mg tablet mg tablet mg tablet Family TAKE 1 TAKE 1 TAKE 1 Practic TABLET (5 TABLET (5 TABLET (5 e MG TOTAL) MG TOTAL) MG TOTAL) BY MOUTH BY MOUTH BY MOUTH NIGHTLY NIGHTLY NIGHTLY NEEDED FOR NEEDED FOR NEEDED FOR SLEEP FOR SLEEP FOR SLEEP FOR UP TO 30 UP TO 30 UP TO 30 DAYS. DAYS. DAYS. Immunizations Ordered Immunization Filled Immunization Date Status Commen Source Name Name COVID-19, mRNA, COVID-19, mRNA, 2021-01-19 Completed [facility] Family LNP-S, PF, 100 LNP-S, PF, 100 00:00:00 Practi ce mcg/0.5 mL dose mcg/0.5 mL dose Vital Signs Vital Name Observation Time Observation Value Comments Source BP Diastolic 2021-02-16 00:00:00 92 mm[Hg] [facility] Height 2021-02-16 00:00:00 68 [in_i] [facility] BMI (Body Mass 2021-02-16 00:00:00 28.5 kg/m2 [facility] Family Index) Practice BP Systolic 2021-02-16 00:00:00 143 mm[Hg] [facility] Body Weight 2021-02-16 00:00:00 187.7 [lb_av] [facility] BP Diastolic 2020-11-13 00:00:00 80 mm[Hg] [facility] Height 2020-11-13 00:00:00 68 [in_i] [facility] BMI (Body Mass 2020-11-13 00:00:00 31 kg/m2 [facility] Family Index) Practice BP Systolic 2020-11-13 00:00:00 115 mm[Hg] [facility] Body Weight 2020-11-13 00:00:00 203.8 [lb_av] [facility] Body height 2020-04-24 10:44:00 170.2 cm Jos Arechiga Body weight 2020-04-24 10:44:00 89.812 kg Jos Arechiga BMI 2020-04-24 10:44:00 31.01 kg/m2 Jos Arechiga Systolic blood 2020-04-08 12:27:00 129 mm[Hg] [facility] pressure Diastolic blood 2020-04-08 12:27:00 63 mm[Hg] [place] pressure Heart rate 2020-04-08 12:27:00 64 /min Jos Arechiga Oxygen saturation in 2020-04-08 12:27:00 95 /min Jos Arechiga Arterial blood by Pulse oximetry Body temperature 2020-04-08 12:07:00 36.83 Brenda Effie Arechiga Respiratory rate 2020-04-08 12:07:00 18 /min [place]ie [place] [facility] Procedures Procedure Date / Time Performing Clinician Source Performed XR KNEE 3 VW RIGHT 2020-04-24 10:45:45 Jacque Latham POC GLUCOSE 2020-04-08 09:06:00 Jacque Latham SURGICAL PATHOLOGY REQUEST 2020-04-08 08:44:00 Jacque Latham [place] AN ELECTIVE SUPRAGLOTTIC 2020-04-08 07:20:22 Krunal Gomez AIRWAY ARTHROPLASTY, KNEE, 2020-04-08 07:15:00 Jacque Latham UNICOMPARTMENTAL ANESTHESIA SPINAL BLOCK 2020-04-08 07:10:12 Krunal Gomez POC GLUCOSE 2020-04-08 06:26:00 Jacque Latham Knee Replacement 2020-04-07 00:00:00 [facility] CORONAVIRUS SARS-COV 2 2020-04-02 16:56:00 Jacque Latham URINE CULTURE 2020-04-02 16:47:00 Mariaelena Mallory HC COMPLETE BLD COUNT 2020-04-02 16:46:00 Mariaelena Mallory W/AUTO DIFF COMPREHENSIVE METABOLIC 2020-04-02 16:46:00 Mariaelena Mallory PANEL URINALYSIS SCREEN AND 2020-04-02 16:46:00 Mariaelena Mallory MICROSCOPY, WITH REFLEX TO CULTURE ESTIMATED GFR 2020-04-02 16:46:00 Mariaelena Mallory Colonoscopy 2017-11-07 00:00:00 [facility] Juhi dean Practice Breast Reconstruction 2017-10-07 00:00:00 [facility] Practice Procedure on Colon 2017-06-07 00:00:00 [facility] Nida derekcathi [facility] Knee Arthroscopy/surgery 2008-11-07 00:00:00 Aquiles wolff [facility] Mastectomy (Both Breasts) 2008-11-07 00:00:00 Vy ayala [facility] Hysterectomy (Total) 1976-11-07 00:00:00 [facility] Plan of Care Planned Activity Planned Date Details Comments Source Future Scheduled Test 2021-06-07 INFLUENZA VACCINE [facility] 00:00:00 [code = INFLUENZA VACCINE] Diagnostic Test 2021-02-16 glucose, fingerstick, [facility] Pending 00:00:00 blood [code = Practice glucose, fingerstick, blood] Diagnostic Test 2021-02-16 hemoglobin A1C, [facility] Pending 00:00:00 fingerstick [code = Practice hemoglobin A1C, fingerstick] Future Scheduled Test 2002 BREAST CANCER [place] [facility] 00:00:00 SCREENING [code = BREAST CANCER SCREENING] Future Scheduled Test 2002 COLONOSCOPY SCREENING [place] [facility] 00:00:00 [code = COLONOSCOPY SCREENING] Future Scheduled Test 2002 SHINGLES VACCINES [facility] 00:00:00 (#1) [code = SHINGLES VACCINES (#1)] Future Scheduled Test 1970 Hepatitis C screening [place] [facility] 00:00:00 (procedure) [code = [id number]] Future Scheduled Test 1968 COVID-19 VACCINE (1) [place] [facility] 00:00:00 [code = COVID-19 VACCINE (1)] Future Scheduled Test 1962 DIABETES: RETINAL EYE [place] [facility] 00:00:00 EXAM [code = DIABETES: RETINAL EYE EXAM] Future Scheduled Test 1962 DIABETIC FOOT EXAM [place] [facility] 00:00:00 [code = DIABETIC FOOT EXAM] Future Scheduled Test 1958 65+ PNEUMOCOCCAL Ho freddie [facility] 00:00:00 VACCINE (1 of 2 - PPSV23) [code = 65+ PNEUMOCOCCAL VACCINE (1 of 2 - PPSV23)] Future Appointment 2021-05-18 Braydon [place], [address] Paula Pickard 00:00:[address]; Practice [address], [place] [address] Encounters Start End Encounter Admission Attending Care Care Encounter Source Date/Time Date/Time Type Type Clinicians Facility Department ID 2021-02-25 2021-02-25 Refill Humble [facility] [id number] 00:00:00 00:00:00 [facility] [id number] [place] [id number] [place] [id number] Medical [address] 2021-02-16 2021-02-16 Braydon [facility] [place] - [id number] V illage 00:00:00 00:00:00 [facility] Yoni, Medical - Practi roby MD: [id number] VM_HOU_Shaleslie e [address], [address], [place] [address] , Ph. 2021-02-02 2021-02-02 Refill Moiz IDKATIE [id number] 00:00:00 00:00:00 [facility] [id number] [place] [id number] Professio [id number] nal 044 Office Building One 2021-01-16 2021-01-16 Refill Humble IDKATIE [id number] 00:00:00 00:00:00 [facility] [id number] [place] [id number] [place] [id number] Medical [address] 2020-12-17 2020-12-17 Office Sandip [facility] [id number] 15:27:52 15:48:47 Visit Domingo [place] [id number] [place] 4.2.7.2.686 [facility] [phone] nal 085 [facility] 2020-11-13 2020-11-13 [place]raydon [place] - [id number] V gera 00:00:00 00:00:00 Farshad VallejoDave - Maryanne ca MD: [id number] VM_HOU_Shad e [address], [place] [address] , Ph. 2020-05-07 2020-05-07 Outpatient [facility] [id number] [place] 00:00:00 00:00:[address] 2020-04-24 2020-04-24 [facility] [id number] [place] 00:00:00 00:00:00 JACQUE [address] 2020-04-24 2020-04-24 [facility] [id number] [place] 00:00:00 00:00:00 JACQUE [address] 2020-04-08 2020-04-08 [facility] [id number] [place] 00:00:00 00:00:00 JACQUE [address] 2020-04-02 2020-04-02 [facility] [id number] [place] 00:00:00 00:00:00 JACQUE [address] 2020-01-24 2020-01-24 [facility] [id number] [place] 00:00:00 00:00:00 JACQUE [address] 2020-01-23 2020-01-23 [facility] [id number] [place] 00:00:00 00:00:00 JACQUE [address] 2020-01-23 2020-01-23 Outpatient [facility] [id number] [place] 00:00:00 00:00:[address] 2019-12-18 2019-12-18 [facility] [id number] [place] 00:00:00 00:00:00 JACQUE [address] Results Test Description Test Time Test Comments Results Result Comments Source Hemoglobin A1c measurement device panel 2020-11-13 16:42:16 Test Item Value Reference Range Interpretation Comme nts Hemoglobin A1C Fingerstick: (test code = Hemoglobin A1C Fingerstick :) [facility]9 [facility] [id number] 12:53:44 Test Item Value Reference Range Interpretation Comments Case number (test code = [id number]) Surgical pathology See link below for report (test code = PDF Lab Report [id number]) Result status (test code This is Final Report = [id number]) for [id number] Jos [id number] 07:20:22SCandace traore 04/08/2020 7:20 AMAirwayDate/Time: 04/08/2020 7:20 AMPerformed by: Krunal Gomez II, MDAuthorized by: Krunal Gomez II, MD Location: ORUrgency: ElectiveDifficult Airway: No Performed by: resident/STEEL ROD BUSTER/AAPreoxygenated with 100% O2: Yes C-spine Precautions Maintained Throughout: Yes Mask Ventilation: Not attemptedFinal Airway Type: Supraglottic airwayFinal LMA:I- GelLMA Size: 4Number of Attempts at Approach: 1 Atraumatic. Dentition unchangedHoushima ShirleyistSpinal [id number] 07:10:12Krunal Gomez II, MD 04/08/2020 7:10 AMSpinal BlockPerformed by: Krunal Gomez II, MDA uthorized by: Krunal Gomez II, MD Patient Location: Pre-opStart Time: 04/08/2020 7:05 AMEnd Time: 04/08/2020 7:07 AMReason for Block: at surgeon's request, post-op pain management Staff: Performed by: AnesthesiologistPreprocedure: patient identified, IV checked, site and side verified, risks and benefits discussed, procedure verified, surgical consent complete, patient position confirmed, monitors and equipment checked, pre-op evaluation complete, timeout performed prior to procedure and coagulation status reviewed Spinal Block: Patient Position: Sitting Prep: Betadine Monitoring: Blood pressure monitoring, continuous pulse oximetry and heart rate Approach: Midline Interspace: L3-4Injection Technique: Single injectionNeedle: Needle Type: Pencil-tip Needle Gauge: 25 GAssessment: Block assessment: No apparent complications and patient tolerated procedure well Post procedure: Patient returned to supine positionHouston Mariah rodriguez2020-05-27 18:11:33 Test Item Value Reference Range Interpretation Comments Urine culture (test SEE COMMENT Bacteriu ezio screen code = [id number]) negative. Jos FLORES2018-11-12 14:27:00 RUN DATE: 09/18/18 [facility] PAGE 1 RUN TIME: 1901 Specimen Inquiry RUN USER: INTERFACE PATIENT: STUART COREAS LOC: JOEL U #: [id number] AGE/SX: 67/F ROOM: [facility] RE09/13/18REG DR: Dimitri Kemp MD : 54 BED: A DIS: 09/14/18 STATUS: DIS Arina TLOC: SPEC #: [id number] RECD: 09/13/18 STATUS: SUSY REElen #: [id number] KATIE: 09/13/18Teri [facility] DR: Dimitri Kemp MD ENTERED: 09/14/185 SP TYPE: BREASTIMPL ALEK DR: ORDERED: GROSS ONLY CODES: W02062 - BREAST, NOS PROCEDURES: GROSS ONLY (Incomplete) TISSUES: BREAST, NOS - RIGHT BREAST IMPLANT CLINICAL HISTORY 67 year old, cellulitis of right breast (castro) FINAL DIAGNOSIS Right breast implant, removal - breast implant (gross identification only) Tissue code 1 CPT code(s): 15242 pkg/wpd GROSS DESCRIPTIONANATOMIC SOURCE OF TISSUE (per Requisition): Right breast implant The specimen is received in a formalin-filled container labeled with the patient's name, and designated "right breast implant, Id only". The specimen consists of an intact barney, opaque and rough silicone breast implant measuring 17 x 16 x 7.5 cm and weighing 745 gm. It contains the inscription "[employer] Style 410FF 740ccLot [id number]". The specimen is for gross ID only. marga/castro 09/14/18 @ 0914 MICROSCOPIC DESCRIPTION The specimen is a breast implant which is for gross identification only. danis/sveta Signed Halley Jaeger 09/18/18 1427 END OF REPORT FOREIGN [id number] 08:06:00 RUN DATE: 07/18/18 [facility] PAGE 1 RUN TIME: 0850 Specimen Inquiry RUN USER: INTERFACE PATIENT: STUART COREAS [facility] #: [id number] AGE/SX: 67/F ROOM: [facility] RE07/13/18REG DR: Dimitri Kemp MD : 54 BED: A DIS: 07/14/18 STATUS: DIS IN TLOC: SPEC #: [id number] RECD: 07/13/18 STATUS: SUSY REQ #: [id number] KATIE: 07/13/18- SUBM DR: Dimitri Kemp MD ENTERED: 07/13/18 SP TYPE: FORBODY OTHR DR: MOIZ MON MD ORDERED: GROSS ONLY CODES: Q08809 - BREAST, NOS COPIES TO: MOIZ MON MD [address] [place] [address] [place] [address] Dimitri Kemp MD [address] [facility] [address] [place] [address] [email or web address] PROCEDURES: GROSS ONLY (Incomplete) TISSUES: BREAST, NOS - RIGHT BREAST ANTIBIOTIC CEMENT CLINICAL HISTORY 67 year old, right breast edema (kr) FINAL DIAGNOSIS Right breast antibiotic cement, removal: - 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 The specimen consists of a 14x 13 x 0.5 cm barney, oval hard plate and is for gross Id only. marga/castro 07/13/18 @ 1506 CONTINUED ON NEXT PAGE RUN DATE: 07/18/18 [facility] PAGE 2 RUN TIME: 0850 Specimen Inquiry RUN USER: INTERFACE SPEC #: [id number] PATIENT: JOSSSTUART BRYNN #[id number] (Continued) MICROSCOPIC DESCRIPTION No microscopic performed, specimen is for gross identification only. [email or web address]/castro 07/18/18 Signed Halley Jaeger 07/18/18 0806 END OF REPORT
[2021-03-06] MEDS ORDERED: ONDANSETRON 4 MG/2 ML VIAL ONE (12:48)
[2021-03-06] MEDS ORDERED: PANTOPRAZOLE 40 MG INJ ONE (12:48)
[2021-03-06] MEDS ORDERED: FENTANYL CITR 100 MCG/2 ML ONE (12:48)
[2021-03-06] MEDS ORDERED: NA CHLORIDE 0.9% 1,000 ML ONE (12:49)
[2021-03-06 13:07] LABS: Urine Blood Negative (Negative); Urine Glucose 3+ (Negative); Urine Protein Negative (Negative)
[2021-03-06 13:18] LABS: Protime INR 1.25
[2021-03-06 13:19] LABS: Absolute Lymphocytes (CBC) 2.1 K/uL (0.7-4.9); Basophils % 0.5 % (0-1.3); RBC Red Blood Cell Count 4.73 M/uL (3.86-4.86)
[2021-03-06 13:34] LABS: ALT/SGPT 26 U/L (12-78); AST/SGOT 16 U/L (15-37); Albumin 3.5 g/dL (3.4-5.0); Alkaline Phosphatase 62 U/L (45-117); BUN Blood Urea Nitrogen 20 mg/dL (7-18); Bicarbonate 26 mmol/L (21-32); Bilirubin Direct < 0.1 mg/dL (0-0.2); Bilirubin Total 0.4 mg/dL (0.2-1.0); Glucose Level 87 mg/dL (74-106); Lipase 107 U/L (73-393); Magnesium 1.8 mg/dL (1.8-2.4); NT PRO-BNP 76 pg/mL (<125); Protein, Total 6.9 g/dL (6.4-8.2); Sodium Level 139 mmol/L (136-145); Troponin (Emerg Dept Use Only) < 0.02 ng/mL (0.0-0.045)
--- NOTE | 2021-03-06 14:46 | RAD REPORT ---
EXAM DESCRIPTION: CT - Abdomen Pelvis W Contrast - 03/06/2021 2:16 pm CLINICAL HISTORY: Abdominal pain. COMPARISON: None. TECHNIQUE: Computed axial tomography of the abdomen and pelvis was obtained. 100 cc Isovue-300 is ad ministered intravenously. Oral contrast was given. All CT scans are performed using dose optimization technique as appropriate and may include automated exposure control or mA/KV adjustment according to patient size. FINDINGS: A 3 millimeter nodule right middle lobe. The liver, spleen, pancreas, adrenals and kidneys appear unremarkable. Small right renal cysts. The appendix is not visualized. No stranding adjacent to the cecum. A hysterectomy been performed. There is no evidence of diverticulitis IMPRESSION: 3 millimeter right lung nodule. Patient is high risk follow up CT chest in 6-12 months recommended No acute abnormality involving the abdomen seen
--- NOTE | 2021-03-06 14:47 | RAD REPORT ---
EXAM DESCRIPTION: Juliocesar Single View03/06/2021 1:09 pm CLINICAL HISTORY: Abdominal pain COMPARISON: 2016 FINDINGS: The lungs appear clear of acute infiltrate. The heart is normal size IMPRESSION: No acute abnormalities displayed
--- NOTE | 2021-03-06 15:47 | EDPHYS ---
Physician Documentation [facility] Name: Chrissy Tavares Age: 70 yrs Sex: Female : 1950 Arrival Date: 03/06/2021 Time: 11:08 Bed 6 Private MD: ELIESER ROCKWELL ED Physician Toi Dillon HPI: 03/06 13:43 This 70 yrs old Female presents to ER via Ambulatory with complaints of sarika Nausea, Epigastric Pain. 13:43 The patient presents to the emergency department with nausea, vomiting, 1 times since sarika the onset of symptoms. Onset: The symptoms/episode began/occurred 5 day(s) ago. Possible causes: unknown. The symptoms are aggravated by nothing. The symptoms are alleviated by nothing. Associated signs and symptoms: The patient has no apparent associated signs or symptoms. Severity of symptoms: At their worst the symptoms were mild in the emergency department the symptoms are unchanged. The patient has not experienced similar symptoms in the past. Historical: - Allergies: 11:15 Hydrocodone-Ibuprofen; hb 11:15 latex tape; hb 11:15 Morphine; hb - Family history:: not pertinent. ROS: 13:43 Constitutional: Negative for fever, chills, and weight loss, Eyes: Negative for injury, sarika pain, redness, and discharge, ENT: Negative for injury, pain, and discharge, Neck: Negative for injury, pain, and swelling, Cardiovascular: Negative for chest pain, palpitations, and edema, Respiratory: Negative for shortness of breath, cough, wheezing, and pleuritic chest pain, Back: Negative for injury and pain, : Negative for injury, bleeding, discharge, and swelling, MS/Extremity: Negative for injury and deformity, Skin: Negative for injury, rash, and discoloration, Neuro: Negative for headache, weakness, numbness, tingling, and seizure, Psych: Negative for depression, anxiety, suicide ideation, homicidal ideation, and hallucinations, Allergy/Immunology: Negative for hives, rash, and allergies, Endocrine: Negative for neck swelling, polydipsia, polyuria, polyphagia, and marked weight changes, Hematologic/Lymphatic: Negative for swollen nodes, abnormal bleeding, and unusual bruising. 13:43 Abdomen/GI: Positive for abdominal pain, nausea and vomiting, diarrhea, of the epigastric area, right upper quadrant and left upper quadrant. Exam: 13:43 Constitutional: This is a well developed, well nourished patient who is awake, alert, sarika and in no acute distress. Head/Face: Normocephalic, atraumatic. Eyes: Pupils equal round and reactive to light, extra-ocular motions intact. Lids and lashes normal. Conjunctiva and sclera are non-icteric and not injected. Cornea within normal limits. Periorbital areas with no swelling, redness, or edema. ENT: Nares patent. No nasal discharge, no septal abnormalities noted. Tympanic membranes are normal and external auditory canals are clear. Oropharynx with no redness, swelling, or masses, exudates, or evidence of obstruction, uvula midline. Mucous membranes moist. Neck: Trachea midline, no thyromegaly or masses palpated, and no cervical lymphadenopathy. Supple, full range of motion without nuchal rigidity, or vertebral point tenderness. No Meningismus. Chest/axilla: Normal chest wall appearance and motion. Nontender with no deformity. No lesions are appreciated. Cardiovascular: Regular rate and rhythm with a normal S1 and S2. No gallops, murmurs, or rubs. Normal PMI, no JVD. No pulse deficits. Respiratory: Lungs have equal breath sounds bilaterally, clear to auscultation and percussion. No rales, rhonchi or wheezes noted. No increased work of breathing, no retractions or nasal flaring. Back: No spinal tenderness. No costovertebral tenderness. Full range of motion. Female : Normal external genitalia. Skin: Warm, dry with normal turgor. Normal color with no rashes, no lesions, and no evidence of cellulitis. MS/ Extremity: Pulses equal, no cyanosis. Neurovascular intact. Full, normal range of motion. Neuro: Awake and alert, GCS 15, oriented to person, place, time, and situation. Cranial nerves II-XII grossly intact. Motor strength 5/5 in all extremities. Sensory grossly intact. Cerebellar exam normal. Normal gait. Psych: Awake, alert, with orientation to person, place and time. Behavior, mood, and affect are within normal limits. 13:43 Abdomen/GI: Inspection: abdomen appears normal, Bowel sounds: normal, Palpation: mild abdominal tenderness, Liver: no appreciated palpable abnormalities, Hernia: not appreciated. 15:48 ECG was reviewed by the Attending Physician. [facility] Vital Signs: 11:11 BP 145 / 86; Pulse 88; Resp 16; Temp 98.3; Pulse Ox 100% on R/A; Pain 5/10; hb 13:08 BP 133 / 70; Pulse 54; Resp 17; Pulse Ox 98% on R/A; tw2 14:30 BP 119 / 66; Pulse 52; Resp 17; Pulse Ox 100% on R/A; tw2 15:36 BP 116 / 66; Pulse 58; Resp 17; Pulse Ox 97% on R/A; tw2 MDM: 12:15 Patient medically screened. sarika 13:45 Differential diagnosis: Nonspecific abd pain, gastritis, cholecystitis, pancreatitis, sarika diverticulitis, viral gastroenteritis, gastroenteritis. Data reviewed: vital signs, nurses notes, lab test result(s), EKG, radiologic studies, CT scan, plain films. 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 Test interpretation: by ED physician or midlevel provider: ECG, plain radiologic studies. Counseling: I had a detailed discussion with the patient and/or guardian regarding: the historical points, exam findings, and any diagnostic results supporting the discharge/admit diagnosis, the presence of at least one elevated blood pressure reading (>120/80) during this emergency department visit, lab results, radiology results. Medical screen evaluation completed. EMTALA emergency medical condition absent. 03/06 12:18 Order name: Basic Metabolic Panel [facility] 03/06 12:18 Order name: CBC with Diff [facility] 03/06 12:18 Order name: LFT's; Complete Time: 13:46 [facility] 03/06 12:18 Order name: Magnesium; Complete Time: 13:46 [facility] 03/06 12:18 Order name: NT PRO-BNP; Complete Time: 13:46 [facility] 03/06 12:18 Order name: PT-INR; Complete Time: 13:46 [facility] 03/06 12:18 Order name: Troponin (emerg Dept Use Only); Complete Time: 13:46 [facility] 03/06 12:18 Order name: XRAY Chest (1 view); Complete Time: 15:42 sarika 03/06 12:18 Order name: Lipase; Complete Time: 13:46 [facility] 03/06 12:18 Order name: Basic Metabolic Panel; Complete Time: 13:46 [facility] 03/06 12:18 Order name: CBC with Automated Diff; Complete Time: 13:46 [facility] 03/06 13:07 Order name: Urine Dipstick-Ancillary; Complete Time: 13:46 [facility] 03/06 13:49 Order name: Troponin (emerg Dept Use Only): 3 pm [facility] 03/06 13:49 Order name: Troponin (Emerg Dept Use Only) [facility] 03/06 12:18 Order name: EKG; Complete Time: 12:18 [facility] 03/06 12:18 Order name: Cardiac monitoring; Complete Time: 13:13 [facility] 03/06 12:18 Order name: EKG - Nurse/Tech; Complete Time: 12:47 [facility] 03/06 12:18 Order name: IV Saline Lock; Complete Time: 13:13 [facility] 03/06 12:18 Order name: Labs collected and sent; Complete Time: 13:13 [facility] 03/06 12:18 Order name: O2 Per Protocol; Complete Time: 12:26 [facility] 03/06 12:18 Order name: O2 Sat Monitoring; Complete Time: 12:26 [facility] 03/06 12:18 Order name: CT Abd/Pelvis - PO and IV Contrast; Complete Time: 15:42 [facility] EC:48 Rate is 59 beats/min. Rhythm is regular. QRS Graham is Normal. [place] interval is normal. QRS sarika interval is normal. QT interval is normal. No Q waves. T waves are Normal. No ST changes noted. Clinical impression: NSR w/ Non-specific ST/T Changes, Abnormal EKG without significant change, and No evidence of ischemia. Interpreted by me. Reviewed by me. Administered Medications: 13:00 Drug: NS 0.9% 1000 ml Route: IV; Rate: 1 bolus; Site: right antecubital; tw2 13:00 Drug: Zofran (Ondansetron) 4 mg Route: IVP; Site: right antecubital; tw2 15:35 Follow up: Response: No adverse reaction tw2 13:02 Drug: fentaNYL (PF) 25 mcg {Note: RASS 0.} Route: IVP; Site: right antecubital; tw2 15:34 Follow up: Response: No adverse reaction; Pain is decreased; RASS: Alert and Calm (0) tw2 13:11 Drug: ProTONIX (pantoprazole) 40 mg Route: IVP; Site: right antecubital; tw2 15:34 Follow up: Response: No adverse reaction tw2 Disposition: 03/06/21 15:46 Discharged to Home. Impression: Functional dyspepsia, Diarrhea, unspecified, Nausea and vomiting. - Condition is Stable. - Discharge Instructions: Food Choices to Help Relieve Diarrhea, Adult, Diarrhea, Adult, Gastroesophageal Reflux Disease, Adult, Indigestion, Gastroesophageal Reflux Disease, Adult, Xfiy-ou-Xlgx, Diarrhea, Adult, Bjte-pj-Wlqq. - Prescriptions for Bentyl 20 mg Oral Tablet - take 1 tablet by ORAL route every 6 hours As needed; 20 tablet. Protonix 40 mg Oral Tablet - take 1 tablet by ORAL route once daily; 30 tablet. Zofran 4 mg Oral Tablet - take 1 tablet by ORAL route every 12 hours As needed; 20 tablet. - Medication Reconciliation Form, Thank You Letter, Antibiotic Education, Prescription Opioid Use form. - Follow up: ELIESER ROCKWELL; When: 2 - 3 days; Reason: Recheck today's complaints, Continuance of care, Re-evaluation by your physician. Follow up: Mary Anne Schmidt MD; When: 2 - 3 days; Reason: Recheck today's complaints, Continuance of care, Re-evaluation by your physician. - Problem is new. - Symptoms have improved. Signatures: Dispatcher [employer] EDToi Pleitez MD MD sarika Kera Helm, RN RN Paulina Bella RN RN 2 Carlo Williamson RN RN bp Corrections: (The following items were deleted from the chart) 16:11 15:46 03/06/2021 15:46 Discharged to Home. Impression: Functional dyspepsia; Diarrhea, bp unspecified; Nausea and vomiting. Condition is Stable. Forms are Medication Reconciliation Form, Thank You Letter, Antibiotic Education, Prescription Opioid Use. Follow up: ELIESER ROCKWELL; When: 2 - 3 days; Reason: Recheck today's complaints, Continuance of care, Re-evaluation by your physician. Follow up: Mary Anne Schmidt; When: 2 - 3 days; Reason: Recheck today's complaints, Continuance of care, Re-evaluation by your physician. Problem is new. Symptoms have improved. sarika
--- NOTE | 2021-03-06 15:47 | ER ---
Nurse's Notes [facility] Name: Chrissy Tavares Age: 70 yrs Sex: Female : 1950 Arrival Date: 03/06/2021 Time: 11:08 Bed 6 Private MD: ELIESER ROCKWELL Diagnosis: Functional dyspepsia;Diarrhea, unspecified;Nausea and vomiting Presentation: 03/06 11:11 Chief complaint: Intermittent epigastric pain and black tarry stools since last night. hb Pt also reports hearing a strange noise coming from her chest that sounded like a faucet running last night for approx 2 hours. Coronavirus screen: At this time, the client does not indicate any symptoms associated with coronavirus-19. Ebola Screen: No symptoms or risks identified at this time. Initial Sepsis Screen: Does the patient meet any 2 criteria? No. Patient's initial sepsis screen is negative. Does the patient have a suspected source of infection? No. Patient's initial sepsis screen is negative. Risk Assessment: Do you want to hurt yourself or someone else? Patient reports no desire to harm self or others. Onset of symptoms was March 05, 2021. 11:11 Method Of Arrival: Ambulatory hb 11:11 Acuity: LORENZA 3 hb Historical: - Allergies: 11:15 Hydrocodone-Ibuprofen; hb 11:15 latex tape; hb 11:15 Morphine; hb - Family history:: not pertinent. Screenin:08 Abuse screen: Denies threats or abuse. Nutritional screening: No deficits noted. tw2 Tuberculosis screening: No symptoms or risk factors identified. Fall Risk None identified. Assessment: 12:10 General: Appears in no apparent distress. Behavior is calm, cooperative, appropriate tw2 for age. Pain: Complains of pain in epigastric area. Neuro: Level of Consciousness is awake, alert, obeys commands, Oriented to person, place, time, situation. Cardiovascular: Patient's skin is warm and dry. Respiratory: Airway is patent Respiratory effort is even, unlabored, Respiratory pattern is regular, symmetrical. GI: Abdomen is round non-distended, Reports nausea. GI: Reports epigastric pain. : No signs and/or symptoms were reported regarding the genitourinary system. Derm: No signs and/or symptoms reported regarding the dermatologic system. Musculoskeletal: Range of motion: intact in all extremities. 13:08 Reassessment: Patient appears in no apparent distress at this time. No changes from tw2 previously documented assessment. Patient and/or family updated on plan of care and expected duration. Pain level reassessed. Patient is alert, oriented x 3, equal unlabored respirations, skin warm/dry/pink. 14:00 Reassessment: Patient appears in no apparent distress at this time. Patient and/or tw2 family updated on plan of care and expected duration. Pain level reassessed. Patient is alert, oriented x 3, equal unlabored respirations, skin warm/dry/pink. Patient states feeling better. 15:36 Reassessment: Patient appears in no apparent distress at this time. Patient and/or tw2 family updated on plan of care and expected duration. Pain level reassessed. Patient is alert, oriented x 3, equal unlabored respirations, skin warm/dry/pink. Patient states feeling better. Patient states symptoms have improved. 16:11 Reassessment: Patient appears in no apparent distress at this time. No changes from tw2 previously documented assessment. Patient and/or family updated on plan of care and expected duration. Pain level reassessed. Patient is alert, oriented x 3, equal unlabored respirations, skin warm/dry/pink. Patient states feeling better. Patient states symptoms have improved. Vital Signs: 11:11 BP 145 / 86; Pulse 88; Resp 16; Temp 98.3; Pulse Ox 100% on R/A; Pain 5/10; hb 13:08 BP 133 / 70; Pulse 54; Resp 17; Pulse Ox 98% on R/A; tw2 14:30 BP 119 / 66; Pulse 52; Resp 17; Pulse Ox 100% on R/A; tw2 15:36 BP 116 / 66; Pulse 58; Resp 17; Pulse Ox 97% on R/A; tw2 ED Course: 11:08 Patient arrived in ED. am2 11:08 ELIESER ROCKWELL is Private Physician. am2 11:14 Triage completed. hb 11:14 Arm band placed on. hb 12:01 Bed in low position. Call light in reach. Pulse ox on. NIBP on. tw2 12:15 Toi Dillon MD is Attending Physician. sarika 12:24 Paulina Bella RN is Primary Nurse. tw2 12:46 EKG done, by ED staff, reviewed by Toi Dillon MD. em1 12:58 Missed attempt(s): 22 gauge in left antecubital area. Bleeding controlled, band aid tw2 applied, catheter tip intact. Missed attempt(s): 22 gauge in left antecubital area. Bleeding controlled, band aid applied, catheter tip intact. 13:00 Inserted saline lock: 22 gauge in right antecubital area, using aseptic technique. tw2 ,using aseptic technique. per Dr. Dillon we can use RIGHT arm that had lymph nodes removed "over 20 years ago" and pt agreeable. Blood collected. 13:06 XRAY Chest (1 view) In Process Unspecified. EDMS 14:15 CT Abd/Pelvis - PO and IV Contrast In Process Unspecified. EDMS 15:34 Troponin (emerg Dept Use Only): 3 pm Sent. tw2 15:43 ELIESER ROCKWELL is Referral Physician. sarika 15:44 Mary Anne Schmidt MD is Referral Physician. sarika 16:11 No provider procedures requiring assistance completed. IV discontinued, intact, tw2 bleeding controlled, No redness/swelling at site. Pressure dressing applied. Administered Medications: 13:00 Drug: NS 0.9% 1000 ml Route: IV; Rate: 1 bolus; Site: right antecubital; tw2 13:00 Drug: Zofran (Ondansetron) 4 mg Route: IVP; Site: right antecubital; tw2 15:35 Follow up: Response: No adverse reaction tw2 13:02 Drug: fentaNYL (PF) 25 mcg {Note: RASS 0.} Route: IVP; Site: right antecubital; tw2 15:34 Follow up: Response: No adverse reaction; Pain is decreased; RASS: Alert and Calm (0) tw2 13:11 Drug: ProTONIX (pantoprazole) 40 mg Route: IVP; Site: right antecubital; tw2 15:34 Follow up: Response: No adverse reaction tw2 Outcome: 15:46 Discharge ordered by . sarika 16:11 Patient left the ED. bp 16:11 Discharged to home ambulatory, with significant other. tw2 16:11 Condition: stable 16:11 Discharge instructions given to patient, significant other, Instructed on discharge instructions, follow up and referral plans. medication usage, Demonstrated understanding of instructions, follow-up care, medications, Prescriptions given X 3. Signatures: Dispatcher [employer] Link Toi Mendez MD MD cha Martinez, Michael em1 Kera Helm, RN RN hb Paulina Bella RN RN tw2 Kelly Valenzuela 2 Carlo Williamson, RN RN bp
[2021-03-06 16:16] VITALS: TEMP 98.3
[2021-03-06 16:20] VITALS: BP 116/66; O2SAT 97
--- NOTE | 2021-03-07 07:24 | EKG ---
Test Date: 2021-03-06 Test Time: 12:41:56 Sales Service Rep: ANATOLIY MEASUREMENT RESULTS: Intervals: Rate: 59 NE: 144 QRSD: 92 QT: 416 QTc: 411 Frost: P: 39 NE: 144 QRS: 69 T: 21 INTERPRETIVE STATEMENTS: Sinus bradycardia Nonspecific ST and T wave abnormality Abnormal ECG Compared to ECG 08/04/2017 05:04:42 No significant changes Electronically Signed On 03-07-21 07:22:02 CDT by Demarco Gay
== END 2021-03-06 16:11 | disposition home or self-care (01) ==
LOC: ER 11:05
DX: K30 Functional dyspepsia (principal); R19.7 Diarrhea, unspecified; R11.2 Nausea with vomiting, unspecified
CPT/HCPCS: 93005; 85025; 80048; 36415; 83735; 85610; 80076; 81003; 84484 ×2; 83690; 83880; 74177; 71045; 96375; 96374; 99284; Q9967; C9113; J3010; J7030; J2405